=== PATIENT | female | born 1965 | race Caucasian/White ===

== ENCOUNTER → 2023-08-02 12:07 | Outpatient (REF) | payer OTHER, SELFPAY | LOC: RAD 12:07 | PROVIDERS: ATTENDING PHYSICIAN Family Medicine; FAMILY PHYSICIAN Internal Medicine; REFERRING PHYSICIAN Physician Assistant | DX: R53.83 Other fatigue (principal); E03.9 Hypothyroidism, unspecified | CPT/HCPCS: 76536 ==

== ENCOUNTER → 2024-08-12 13:44 | Outpatient (REF) | payer OTHER, SELFPAY | LOC: WDC 13:44 | PROVIDERS: ATTENDING PHYSICIAN Family Medicine | DX: Z12.31 Encounter for screening mammogram for malignant neoplasm of breast (principal); Z12.39 Encounter for other screening for malignant neoplasm of breast | CPT/HCPCS: 77063; 77067 ==

== ENCOUNTER → 2024-12-15 09:16 | Outpatient (REF) | payer OTHER, SELFPAY | LOC: RAD 09:16 | PROVIDERS: ATTENDING PHYSICIAN Family Medicine; FAMILY PHYSICIAN Family Medicine; OTHER PHYSICIAN Obstetrics & Gynecology Gynecology | DX: Z13.820 Encounter for screening for osteoporosis (principal); R19.8 Other specified symptoms and signs involving the digestive system and abdomen; E03.9 Hypothyroidism, unspecified; N95.1 Menopausal and female climacteric states; M54.50 Low back pain, unspecified | CPT/HCPCS: 72110; 77080 ==

== ENCOUNTER → 2025-01-16 09:28 | Outpatient (REF) | payer OTHER, SELFPAY | LOC: RAD 09:28 | PROVIDERS: ATTENDING PHYSICIAN Nurse Practitioner Adult Health | DX: M79.605 Pain in left leg (principal); M79.89 Other specified soft tissue disorders; D68.51 Activated protein C resistance | CPT/HCPCS: 93971 ==

== ENCOUNTER → 2025-02-09 09:25 | Outpatient (REF) | payer OTHER, SELFPAY | LOC: HWRAD 09:25 | PROVIDERS: ATTENDING PHYSICIAN Family Medicine | DX: R10.11 Right upper quadrant pain (principal) | CPT/HCPCS: 76700 ==

== ENCOUNTER → 2025-06-30 08:01 | Outpatient (REF) | payer OTHER, SELFPAY ==
[2025-06-30 10:16] LABS: Free T3 4.91 pg/ml (2.77-5.27)
[2025-06-30 10:30] LABS: TSH 3.03 uIU/ml (0.47-4.68)
== END ==
LOC: REG 08:01
PROVIDERS: ATTENDING PHYSICIAN Family Medicine
DX: R00.2 Palpitations (principal); E03.9 Hypothyroidism, unspecified
CPT/HCPCS: 36415; 84439; 84443; 84481

== ENCOUNTER 2025-07-29 17:23 | Emergency (ER) | payer OTHER, SELFPAY ==
[2025-07-29 17:29] VITALS: BP 124/76
[2025-07-29 17:43] LABS: Hematocrit 38.6 % (37.0-47.0); Hemoglobin 12.5 g/dL (12.0-16.0); Mean Corp Hgb Conc. 32.4 g/dL (33.0-37.0); Mean Corpuscular Volume 90.8 fL (81.0-99.0); Nucleated Red Blood Cells % 0 %; Platelet Count 225 10^3/uL (130-400); Red Cell Dist. Width 13.3 % (11.5-14.5)
[2025-07-29 18:00] LABS: ALT (SGPT) 15 U/L (0-35); AST (SGOT) 22 U/L (14-36); Albumin 4.7 g/dl (3.5-5.0); Alkaline Phosphatase 56 U/L (38-126); Blood Urea Nitrogen 17 mg/dl (7-17); Calcium 9.9 mg/dl (8.4-10.2); Carbon Dioxide 27 mmol/L (22-30); Chloride 103 mmol/L (98-107); Glucose 86 mg/dl (70-99); Lipase 128 U/L (23-300); Potassium 4.4 mmol/L (3.5-5.1); Sodium 138 mmol/L (135-145); Total Protein 7.9 g/dl (6.3-8.2); eGFR > 60.00
[2025-07-29 20:15] VITALS: BP 119/76
[2025-07-29 22:15] VITALS: BP 122/76
[2025-07-29 23:00] VITALS: BP 129/76
--- NOTE | 2025-07-29 23:03 | ED.GENMED ---
History of Present Illness
General
Chief Complaint: Abdominal Symptoms
Source: patient
Exam Limitations: none
Time Seen by Provider: 07/29/25 19:35
Nursing documentation reviewed up to this point in time: agreed with
History of Present Illness
History of Present Illness:
Patient presents to ED secondary to intermittent upper abdominal pain over the past 6 weeks. Patient has been evaluated by her primary care physician and was started on pantoprazole, without improvement symptoms. Patient subsequently called her GI
physician and has an appointment at the end of August. However, given her symptoms, she did not feel that she can wait until then. Denies fever or chills. Denies vomiting or diarrhea. Denies trauma. Denies recent illness. Denies recent change
in diet. Abdominal pain described as crampy, nonradiating, associated with sensation of food not passing down when she eats.
Past History
Past History
ED Past Medical History: Asthma, GERD, Psychiatric (anxiety) and Other (migraines, factor 5, DVT age 16)
ED Past Surgical History: and Other (Explantation of bilateral breast implants)
Social History
Tobacco: Non-smoker
Alcohol: Occasional
Drug: None
Personal:
Living: with family
Employment: Employed
Review of Systems
Review of Systems
Allergies reviewed?: Yes
All Other Systems: ROS reviewed and negative except as documented in HPI and ROS
Constitutional: Reports no symptoms; Denies fever
Respiratory: Reports no symptoms
Cardiac: Reports no symptoms
ABD/GI: Reports abdominal pain; Denies vomiting or diarrhea
Musculoskeletal: Reports no symptoms
Skin: Reports no symptoms
Neurological: Reports no symptoms
Phy Exam
Physical Exam
Physical Exam:
Physical Exam
General: no apparent distress, not acutely ill. afebrile
Head: nc/at. eomi
Neck: supple. normal range of motion
Abdomen: normal bowel sounds. not tender. no distention
Neuro: alert and oriented x 3. no focal neurological deficits
Skin: no rash
Psychiatric: well kept. interactive and cooperative
Extremities: no edema. no calf tenderness.
Course
Orders/Labs/Results
Orders:
Orders
07/29/25 17:35
Complete Blood Count/With Diff Urgent
Comprehensive Metabolic Panel Urgent
Lipase Urgent
07/29/25 20:13
US Abdomen Complete/Upper Urgent
Comment:
Reason For Exam: RUQ/epigastric pain
Abnormal Lab Results
07/29/25
17:35
MCHC 32.4 L g/dL
(33.0-37.0)
MPV 10.5 H fL
(7.4-10.4)
07/29/25 17:35
07/29/25 17:35
Vital Signs
Initial and Last Documented VS:
Initial Vital Signs
Temp Pulse Resp BP Pulse Ox
98.5 F 74 16 124/76 98
07/29/25 17:29 07/29/25 17:29 07/29/25 17:29 07/29/25 17:29 07/29/25 17:29
Last Documented Vital Signs
Temp Pulse Resp BP Pulse Ox
98.5 F 64 16 129/76 99
07/29/25 17:29 07/29/25 22:34 07/29/25 22:34 07/29/25 23:00 07/29/25 23:03
MDM/Problems Addressed
MDM/Problems Addressed:
Patient with an unremarkable workup in ED, including blood work and abdominal ultrasound.
History and exam consistent with likely gastritis versus ulcer versus esophagitis. Otherwise, patient is afebrile, hemodynamically stable, and nontoxic-appearing, during observation.
Discussed with on-call GI physician, Dr. Barbie Galan, and discussed all findings. Agrees with plan to discharge patient home with recommendation to take pantoprazole twice daily, along with Carafate prescription. GI office will contact patient at
home for an earlier appointment. Patient and spouse agree with treatment plan. Will return to ED with worsening symptoms, i.e. fever/worsening pain/vomiting
*Pulse Oximetry
SaO2: 99
Oxygen Mode of Delivery: Room air
Patient hypoxic: no
*Critical Care Note
Total Time (30-74mins, 75-104mins- exclusive of procedures): Not Applicable
ED Attending Note
-
Portions of this chart may have been created with voice recognition software.� Occasional wrong word or��sound alike� substitutions may have occurred due to the inherent limitations of voice recognition software.
Discharge Plan
Departure
Patient Disposition: Home (Routine Discharge)
Date of Disposition: 07/29/25
Time of Disposition: 23:03
Patient with high blood pressure during this ER visit?: Yes
Condition: Fair
Discharge Problem:
Abdominal pain
Instructions: [place] Diet, Abdominal Pain
Prescriptions:
New
sucralfate [Carafate] 100 mg/mL suspension
10 ml PO QID Qty: 400 0RF
No Action
atorvastatin 10 MG tablet
10 mg PO QPM
fluticasone propionate 1 SPRAY spray,suspension
1 spray intranasal DAILY
budesonide-formoterol [Symbicort] 1 PUFF HFA aerosol inhaler
1 - 2 puff inhalation R BID
ubrogepant [Ubrelvy] 100 MG tablet
100 mg PO BIDPRN MDD 200mg/24hour PRN (Reason: migraine)
Coq10
1 tab PO DAILY
riboflavin (vitamin B2) 400 MG tablet
400 mg PO DAILY
meclizine 25 MG tablet
25 mg PO Q8HPRN PRN (Reason: Vertigo) Qty: 30 0RF
diazepam 5 MG tablet
5 mg PO TIDPRN PRN (Reason: left chest wall spasm) Qty: 6 0RF
Referrals:
Laura Matos MD [Family Provider, Family Practice]
Christine Kunz MD [Active, Gastroenterology]
Activity Restrictions/Additional Instructions:
As discussed, please follow-up with your GI physician for further evaluation and treatment. In the meantime, recommend taking pantoprazole twice daily x 1 week, along with prescribed medication. Your prescription has been sent electronically to
[facility] pharmacy on [address] in [place].
Interventions
Interventions:
*Risk Screen - Suicide Last Done: 07/29/25 17:29
*General Assessment Last Done: 07/29/25 17:29
*Neglect/Abuse Screening Last Done: 07/29/25 17:29
*ED- Fall Risk Assessment Last Done: 07/29/25 17:29
*ED COVID-19 Vaccine History Last Done: 07/29/25 17:29
TK-Tsvuoc-Bfofpwdmom Assessment Last Done: 07/29/25 20:16
Discharge Date and Time
Print Language: ANDORRAN
== END 2025-07-29 23:20 | disposition home or self-care (01) ==
LOC: EMR 17:23
PROVIDERS: Student in an Organized Health Care Education/Training Program; EMERGENCY PHYSICIAN Emergency Medicine; FAMILY PHYSICIAN Family Medicine
DX: R10.11 Right upper quadrant pain (principal); R03.0 Elevated blood-pressure reading, without diagnosis of hypertension; J45.909 Unspecified asthma, uncomplicated; D68.51 Activated protein C resistance; K21.9 Gastro-esophageal reflux disease without esophagitis; F41.9 Anxiety disorder, unspecified; Z86.718 Personal history of other venous thrombosis and embolism
CPT/HCPCS: 99284; 76700; 80053; 83690; 85025

== ENCOUNTER → 2025-08-13 13:52 | Outpatient (REF) | payer OTHER, SELFPAY | LOC: WDC 13:52 | PROVIDERS: ATTENDING PHYSICIAN Family Medicine | DX: Z12.31 Encounter for screening mammogram for malignant neoplasm of breast (principal); Z12.39 Encounter for other screening for malignant neoplasm of breast | CPT/HCPCS: 77063; 77067 ==

== ENCOUNTER → 2025-08-21 14:38 | Outpatient (REF) | payer OTHER, SELFPAY | LOC: RAD 14:38 | PROVIDERS: ATTENDING PHYSICIAN Obstetrics & Gynecology Gynecology; FAMILY PHYSICIAN Family Medicine | DX: R10.20 Pelvic and perineal pain unspecified side (principal) | CPT/HCPCS: 76830; 76856 ==